=== PATIENT | female | born 1960 | race Caucasian/White ===

== ENCOUNTER 2019-06-13 09:06 | Outpatient (CLI) | payer OTHER, SELFPAY ==
--- NOTE | 2019-06-13 | ECHO_ITS ---
Patient Info Name: Jesenia Myles Age: 58 years : 1960 Gender: Female Ht: 62 in Wt: 105 lbs BSA: 1.44 m2 HR: 70 bpm BP: 132 / 87 mmHg Heart Rhythm: Sinus Rhythm Technical Quality: Good Exam Date: 06/13/2019 9:35 AM Exam Location: [facility] Patient Status: Outpatient Admit Date: 06/13/2019 Staff Ordering Physician: PHYSICIAN NOT ON STAFF, NONSTAFF Bluing Oven Tender: Dc Blevins, KALPANA, RT Attending Provider: PHYSICIAN NOT ON STAFF, NONSTAFF Exam Type: CA echo doppler color flow Study Info Indications I49.8 - Other specified cardiac arrhythmias Complete two-dimensional, color flow and Doppler transthoracic echocardiogram is performed. Summary 1. Left ventricular systolic function is normal, estimated at 55-60%. 2. There is no increased left ventricular wall thickness. 3. The left ventricular diastolic function is grade I diastolic dysfunction. 4. Left ventricular chamber dimension is normal. 5. There is no aortic valve stenosis. 6. There is trace aortic valve regurgitation. 7. There is trace mitral valve regurgitation. 8. There is trace tricuspid valve regurgitation. 9. Unable to estimate PA systolic pressure due to poor spectral resolution of tricuspid regurgitant jet velocity. Left Ventricle Left ventricular chamber dimension is normal. Left ventricular systolic function is normal, estimated at 55-60%. There is no increased left ventricular wall thickness. The left ventricular diastolic function is grade I diastolic dysfunction. Global longitudinal strain is normal at -20 %. Right Ventricle Right ventricular chamber dimension is normal. Right ventricular systolic function is normal. Left Atria Left atrial chamber dimension is normal. Right Atria Right atrial chamber dimension is normal. Aortic Valve The aortic valve is trileaflet. There is mild aortic valve sclerosis. There is no aortic valve stenosis. There is trace aortic valve regurgitation. Pulmonic Valve The pulmonic valve is not well visualized. There is trace pulmonic regurgitation. Mitral Valve The mitral valve has thickened leaflets. There is trace mitral valve regurgitation. Tricuspid Valve The tricuspid valve leaflets are normal. There is trace tricuspid valve regurgitation. Unable to estimate PA systolic pressure due to poor spectral resolution of tricuspid regurgitant jet velocity. Pericardium/Pleural The pericardium appears normal. There is no pericardial effusion. Inferior Vena Cava Normal inferior vena cava with >50% collapse upon inspiration consistent with normal right atrial pressure, 5 mmHg. Aorta The aortic root size at the sinus of Valsalva is normal. Left Ventricular Outflow Tract Name Value Normal LVOT 2D LVOT Diameter 1.9 cm LVOT Doppler LVOT Peak Gradient 2 mmHg LVOT Mean Gradient 1 mmHg LVOT VTI 16 cm LVOT VTI/AV VTI Ratio 0.8 LVOT Stroke Volume 45 ml LVOT CO 3.1 l/min
== END 2019-06-13 09:07 | disposition home or self-care (01) ==
PROVIDERS: PCP Family Medicine
DX: I49.3 Ventricular premature depolarization (principal)
CPT/HCPCS: 93306

== ENCOUNTER 2020-04-15 08:14 | Outpatient (CLI) | payer OTHER, SELFPAY ==
--- NOTE | ~2020-04-15 | MM_ITS ---
EXAMINATION: MM screening donny BI w [facility] HISTORY: Screening mammogram, family history of breast cancer in her mother and sister. TECHNIQUE: Craniocaudal and mediolateral oblique 3-D tomosynthesis images were obtained and synthetic 2-D images were generated. CAD analysis was submitted and interpreted. COMPARISON: 12/17/2018, 08/17/2017, 08/14/2016 BREAST PARENCHYMAL COMPOSITION: The breasts are extremely dense, which lowers the sensitivity of mamm ography. FINDINGS: There is no evidence of suspicious mass, calcification, or architectural distortion to sugg est malignancy in either breast. There has been no suspicious interval change. IMPRESSION: 1. No mammographic evidence of malignancy. 2. Recommend routine screening mammography in one year. BI-RADS Category 1: Negative Reviewed, dictated and finalized at location A. [facility]
== END 2020-04-15 08:15 | disposition home or self-care (01) ==
PROVIDERS: Visit Provider Obstetrics & Gynecology
DX: Z12.31 Encounter for screening mammogram for malignant neoplasm of breast (principal)
CPT/HCPCS: 77063; 77067

== ENCOUNTER 2020-05-14 00:37 | Outpatient (CLI) | payer OTHER, SELFPAY ==
[2020-05-14 18:46] LABS: SARS-CoV-2 RNA PCR Negative
== END 2020-05-14 00:38 | disposition home or self-care (01) ==
LOC: ANHCOVIDDT 00:38
PROVIDERS: Visit Provider Internal Medicine Gastroenterology
DX: Z01.812 Encounter for preprocedural laboratory examination (principal); Z20.822 Contact with and (suspected) exposure to COVID-19
CPT/HCPCS: C9803; U0003; U0005

== ENCOUNTER 2020-05-17 01:28 | Day surgery (SDC) | payer OTHER, SELFPAY ==
[2020-05-06 15:24] VITALS: BMI 18.9
[2020-05-17 07:34] VITALS: BP 132/86; PULSE 90; RESP 16; TEMP 37.2; O2SAT 100
[2020-05-17] MEDS: LACTATED RINGERS 1,000 ML 150 ML IV CONT (07:48)
--- NOTE | 2020-05-17 08:14 | WPDANESEPPF ---
Anes - Initial Pre Proc Eval Procedure: Operation Date: 05/17/20 09:00 Proposed Procedures p Screening Colonoscopy - Lavon Robins MD Date/Time: 05/17/20 08:14 Surgeon: Lavon Robins MD Pre Op Diagnosis: neoplasm screening Patient Data Age: 59 Gender: F Height: 5 ft 2 in Weight: 43.9 kg Last Vital Signs Temp 98.9 F 05/17/20 07:34 Pulse 90 05/17/20 07:34 Resp 16 05/17/20 07:34 BP 132/86 05/17/20 07:34 Pulse Ox 100 05/17/20 07:34 Allergies Allergy/AdvReac Type Severity Reaction Status Date / Time grapefruit AdvReac Intermediate Swelling Verified 05/17/20 07:33 of Lip/Tongue/Throat Home Medications Medication Instructions Recorded Confirmed Type Lactobacillus 40-Bifidobact 1 cap PO DAILY 03/31/19 05/17/20 History 3-S.thermophilus 100 billion cell capsule cholecalciferol (vitamin D3) 125 5,000 unit PO WEEKLY cap 03/31/19 05/17/20 History mcg (5,000 unit) capsule flecainide 50 mg tablet 50 mg PO Q12H 03/31/19 05/17/20 History glycine 600 mg capsule 600 mg PO DAILY 03/31/19 05/17/20 History omega-3 fatty acids 1,000 mg PO DAILY 03/31/19 05/17/20 History selenomethionine 200 mcg tablet 200 mcg PO DAILY 03/31/19 05/17/20 History vitamin B12 1,000 mcg-folic acid 2 tablet SUBLINGUAL .QD tablet 03/31/19 05/17/20 History 400 mcg sublingual tablet zinc oxide 15 mg disintegrating 1 mg PO DAILY 03/31/19 05/17/20 History tablet Patient hx anesthesia problems: none Family hx anesthesia problems: none PMFSH Past Medical History Medical History Arrhythmia 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 Headache Hormone imbalance Left ventricular outflow tract ventricular tachycardia LUQ pain Primary insomnia Surgical History Surgical History H/O: Hx of LASIK Family History Family History Mother Breast cancer Uterine cancer Sibling Breast cancer Father Heart disease Fatty liver disease, nonalcoholic Social History Social History Smoking status: Never smoker Second hand tobacco smoke exposure: No Alcohol intake: current Drinks per week: 5 Substance use: never Substance use type: does not use Living arrangements: with family Gender identity (if verbalized by the patient): Female Spiritual care concerns: No Agree to blood products: Yes Anes - Eval Final PreProcedure Day of Procedure 05/17/20 08:14 Patient weight: normal Heart: regular rate and rhythm Lungs: clear to auscultation Airway: Mallampati scale class II Neurological: alert and oriented Last oral intake: >/= 8 hours ASA classification: III Emergent: no Anesthetic plan: proceed Anesthesia type and monitoring: general GIVS and standard monitoring Informed Consent: The patient's anesthetic plan and its attendant risks and benefits were discussed with the patient/family/POA. Questions were solicited and answers provided to the satisfaction of the patient/family/POA.
--- NOTE | 2020-05-17 08:30 | PM.HPGS ---
History of Present Illness History of Present Illness Consent: Risks, benefits, and alternatives have been discussed and questions answered. Patient agrees to proceed with procedure. Chief complaint: neoplasm screening Narrative: Jesenia Myles is a 59 year old female with polyps in 2014 Review of Systems Constitutional: Constitutional: Denies headache(s) and Denies weakness Eyes: Eyes: Denies blurry vision ENT: Reports Normal hearing present, Denies headache(s) and Denies neck pain Cardiovascular: Cardiovascular: Denies chest pain and Denies dyspnea Respiratory: Respiratory: Denies dyspnea Gastrointestinal: Gastrointestinal: Reports no additional gastrointestinal complaints Genitourinary: Genitourinary: Denies dysuria Musculoskeletal: Musculoskeletal: Denies neck pain Integumentary/Breasts: Skin/Breast: Denies dry skin Neurologic: Reports Normal hearing present, Denies headache(s) and Denies weakness Psychiatric: Psychiatric: Denies anxiety Endocrine: Endocrine: Denies change in body appearance Hematologic/Lymphatic: Hematologic/Lymphatic: Denies easy bleeding Allergic/Immunologic: Allergic/Immunologic: Denies urticaria PMF Past Medical History Medical History (Updated 05/17/20 @ 08:31 by Lavon Robins MD) Arrhythmia Colon polyp 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 Headache Hormone imbalance Left ventricular outflow tract ventricular tachycardia LUQ pain Primary insomnia Surgical History Surgical History H/O: Hx of LASIK Family History Family History Mother Breast cancer Uterine cancer Sibling Breast cancer Father Heart disease Fatty liver disease, nonalcoholic Social History Social History Smoking status: Never smoker Second hand tobacco smoke exposure: No Alcohol intake: current Drinks per week: 5 Substance use: never Substance use type: does not use Living arrangements: with family Gender identity (if verbalized by the patient): Female Spiritual care concerns: No Agree to blood products: Yes Meds Home Medications and Allergies Home Medications Medication Instructions Recorded Confirmed Type Lactobacillus 40-Bifidobact 1 cap PO DAILY 03/31/19 05/17/20 History 3-S.thermophilus 100 billion cell capsule cholecalciferol (vitamin D3) 125 5,000 unit PO WEEKLY cap 03/31/19 05/17/20 History mcg (5,000 unit) capsule flecainide 50 mg tablet 50 mg PO Q12H 03/31/19 05/17/20 History glycine 600 mg capsule 600 mg PO DAILY 03/31/19 05/17/20 History omega-3 fatty acids 1,000 mg PO DAILY 03/31/19 05/17/20 History selenomethionine 200 mcg tablet 200 mcg PO DAILY 03/31/19 05/17/20 History vitamin B12 1,000 mcg-folic acid 2 tablet SUBLINGUAL .QD tablet 03/31/19 05/17/20 History 400 mcg sublingual tablet zinc oxide 15 mg disintegrating 1 mg PO DAILY 03/31/19 05/17/20 History tablet Allergies Allergy/AdvReac Type Severity Reaction Status Date / Time grapefruit AdvReac Intermediate Swelling Verified 05/17/20 07:33 of Lip/Tongue/Throat Vital Signs Vital Signs - 24 hr 05/17/20 07:34 Temperature 98.9 F Pulse Rate 90 Respiratory Rate 16 Blood Pressure 132/86 Pulse Oximetry 100 Exam Const: General: comfortable and no acute distress HENMT: General nose exam: Normal nares present Eyes: General: appearance normal, both eyes and all related structures Neck: Neck: no JVD Resp: Auscultation: clear to auscultation bilaterally Cardio: Rate: regular rate Rhythm: regular rhythm GI: Inspection: non-distended GI Palp: Yes Soft to palpation Skin: General skin exam: normal color Neuro: General: gait normal Speech: normal speech Extrem: General: normal to inspection Psych: Mental Status: mental status grossly normal
[2020-05-17 09:00] VITALS: BP 100/58; PULSE 69; RESP 16; O2SAT 100
[2020-05-17 09:10] VITALS: BP 119/61; PULSE 73; RESP 18; O2SAT 100
[2020-05-17 09:42] VITALS: BP 124/64; PULSE 69; RESP 20; O2SAT 100
== END 2020-05-17 09:44 | disposition home or self-care (01) ==
PROVIDERS: Visit Provider Internal Medicine Gastroenterology
PROC: 0DJD8ZZ Inspection of Lower Intestinal Tract, Via Natural or Artificial Opening Endoscopic (ICD-10-PCS; CPT 45378; principal; 2020-05-17 09:00)
DX: Z12.11 Encounter for screening for malignant neoplasm of colon (principal); D12.0 Benign neoplasm of cecum; I49.9 Cardiac arrhythmia, unspecified; I47.2 Ventricular tachycardia; G47.00 Insomnia, unspecified; K64.8 Other hemorrhoids
CPT/HCPCS: 45385; 88305; C9803; J2704; J7120; U0003; U0005

== ENCOUNTER 2020-07-05 15:16 | Outpatient (CLI) | payer OTHER, SELFPAY | END 2020-07-05 15:17 | disposition home or self-care (01) | LOC: ANHCOVIDVC 15:16 | PROVIDERS: Visit Provider Family Medicine | DX: Z23 Encounter for immunization (principal) | CPT/HCPCS: 0001A; 91300 ==

== ENCOUNTER 2020-07-26 15:14 | Outpatient (CLI) | payer OTHER, SELFPAY | END 2020-07-26 15:15 | disposition home or self-care (01) | LOC: ANHCOVIDVC 15:14 | PROVIDERS: Visit Provider Family Medicine | DX: Z23 Encounter for immunization (principal) | CPT/HCPCS: 0002A; 91300 ==

== ENCOUNTER → 2021-04-27 10:12 | Outpatient (CLI) | payer OTHER, SELFPAY ==
--- NOTE | ~2021-04-27 | MM_ITS ---
EXAMINATION: MM screening donny BI [facility] HISTORY: Screening TECHNIQUE: Craniocaudal and mediolateral oblique 3-D tomosynthesis images were obtained and synthetic 2-D images were generated. CAD analysis was submitted and interpreted. COMPARISON: Comparison to multiple prior studies sequentially, with oldest reviewed study dated 05/27. BREAST PARENCHYMAL COMPOSITION: The breasts are extremely dense, which lowers the sensitivity of mamm ography FINDINGS: There is no evidence of suspicious mass, calcification, or architectural distortion to sugg est malignancy in either breast. There has been no suspicious interval change. IMPRESSION: 1. No mammographic evidence of malignancy. 2. Recommend routine screening mammography in one year. BI-RADS Category 1: Negative Reviewed, dictated and finalized at location A. [facility]
== END ==
PROVIDERS: Visit Provider Obstetrics & Gynecology
DX: Z12.31 Encounter for screening mammogram for malignant neoplasm of breast (principal)
CPT/HCPCS: 77063; 77067

== ENCOUNTER → 2021-05-17 10:14 | Outpatient (CLI) | payer OTHER, SELFPAY ==
--- NOTE | ~2021-05-17 | DEXA_ITS ---
Bone Density Report Name: JANY MEEHAN Age: 60 Sex: Female Ethnicity: White Date of : 1960 Indication: osteopenia; monitoring treatment; postmenopausal Referring Provider: MARTIN HASKINS Study: Bone densitometry was performed. Exam Date: May 17, 2021 Accession number: [id number] Bone Density: Region BMD T-score Z-score Classification AP Spine (L1-L4) 0.881 -1.5 0.1 Osteopenia Femoral Neck (Left) 0.639 -1.9 -0.5 Osteopenia Total Hip (Left) 0.697 -2.0 -0.9 Osteopenia Femoral Neck (Right) 0.626 -2.0 -0.6 Osteopenia Total Hip (Right) 0.696 -2.0 -0.9 Osteopenia Total Hip Mean 0.697 -2.0 -0.9 Osteopenia World Health Organization criteria for BMD impression classify patients as: Normal (T-score at or above -1.0), Osteopenia (T-score between -1.0 and -2.5), or Osteoporosis (T-score at or below -2.5). 10-year Fracture Risk: FRAX not reported because: Treated for osteoporosis Previous Exams: Region Exam Age BMD T-score BMD Change BMD Change Date g/cm2 vs Baseline vs Previous AP Spine(L1-L4) 05/17/2021 60 0.881 -1.5 -0.030* -0.030* 02/12/2019 58 0.911 -1.2 Total Hip(Left) 05/17/2021 60 0.697 -2.0 -0.018 -0.018 02/12/2019 58 0.716 -1.9 Total Hip(Right) 05/17/2021 60 0.696 -2.0 -0.011 -0.011 02/12/2019 58 0.707 -1.9 *Denotes significance at 95% confidence level, LSC for AP Spine = 0.022 g/cm2, LSC for Total Hip = 0.027 g/cm2 Clinical Information Provided by Patient: Is being treated for osteoporosis Has used the following medications: HRT (i.e. estrogen/hormone therapy), Vitamin D, Calcium, ORAL AND CREAMS FOR HRT Patient maximum height was 63 Menopause Age: 53 Does not regularly consume dairy products Drinks caffeinated beverages Onset of menses at age 16 Number of children 2 Impression: The patient has low bone mass, based on the Left Total Hip T-score. The BMD for the AP Spine(L1-L4) decreased, changing by -0.030 since the last DXA exam. Discussion: SIGNIFICANT BONE LOSS OBSERVED. Adherence to therapy (including calcium and vitamin D intake) should be assessed. If compliance is not a factor, review management and exclusion of secondary causes of bone loss. It is important to ask patients whether they are taking their medications and to encourage continued and appropriate compliance with their osteoporosis therapies to reduce fracture risk. It is also important to review their ris
== END ==
PROVIDERS: Visit Provider Obstetrics & Gynecology
DX: Z78.0 Asymptomatic menopausal state (principal); M85.88 Other specified disorders of bone density and structure, other site; M85.851 Other specified disorders of bone density and structure, right thigh; M85.852 Other specified disorders of bone density and structure, left thigh
CPT/HCPCS: 77080

== ENCOUNTER → 2022-05-15 14:53 | Outpatient (CLI) | payer OTHER, SELFPAY ==
--- NOTE | ~2022-05-15 | MM_ITS ---
EXAMINATION: MM screening donny BI w [place] HISTORY: Screening mammogram, family history of breast cancer in her mother and sister. TECHNIQUE: Craniocaudal and mediolateral oblique 3-D tomosynthesis images were obtained and synthetic 2-D images were generated. CAD analysis was submitted and interpreted. COMPARISON: 04/27/2021, 04/15/2020, 12/17/2018 BREAST PARENCHYMAL COMPOSITION: The breasts are extremely dense, which lowers the sensitivity of mamm ography. FINDINGS: No suspicious mass, calcification, or architectural distortion are identified in either lilia ast to suggest malignancy. There has been no suspicious interval change. IMPRESSION: 1. No mammographic evidence of malignancy. 2. Recommend routine screening mammography in one year. BI-RADS Category 1: Negative Reviewed, dictated and finalized at location A. [facility]
== END ==
PROVIDERS: PCP Obstetrics & Gynecology; Visit Provider Obstetrics & Gynecology
DX: Z12.31 Encounter for screening mammogram for malignant neoplasm of breast (principal)
CPT/HCPCS: 77063; 77067